=== PATIENT | male | born 1990 | race Two or more races ===

== ENCOUNTER 2018-03-19 09:46 | Emergency (ER) | payer OTHER ==
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
== END 2018-03-19 11:05 | disposition home or self-care (01) ==
LOC: JD.ED 09:46
DX: S16.1XXA Strain of muscle, fascia and tendon at neck level, initial encounter (principal); V59.49XA Driver of pick-up truck or van injured in collision with other motor vehicles in traffic accident, initial encounter
CPT/HCPCS: 99283

== ENCOUNTER 2021-03-08 20:29 | Emergency (ER) | payer OTHER, BC ==
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
--- NOTE | 2021-03-10 07:17 | CR ---
Chest: Frontal view of the chest was obtained. Comparison: No previous study. Heart size and mediastinum are normal. Lungs are clear with no acute parenchymal change. No acute osseous abnormality is appreciated. Impression: 1. Nothing acute is appreciated on frontal chest x-ray. Diagnostic code #1
--- NOTE | 2021-03-10 07:33 | CR ---
Right shoulder: 3 views of the right shoulder were obtained. Comparison: No previous shoulder study is available. Glenohumeral joint and acromioclavicular joint appear within normal limits. No acute fracture or dislocation is seen. Small nodule is noted within the right upper lung most likely representing granuloma. Impression: 1. Small granuloma within the right lung. 2. Right shoulder study is otherwise unremarkable. Diagnostic code #2
== END 2021-03-08 22:10 | disposition home or self-care (01) ==
LOC: JD.ED 20:29
DX: S40.011A Contusion of right shoulder, initial encounter (principal); J45.909 Unspecified asthma, uncomplicated; V28.4XXA Motorcycle driver injured in noncollision transport accident in traffic accident, initial encounter; Y92.410 Unspecified street and highway as the place of occurrence of the external cause
CPT/HCPCS: 71045; 71045-26; 73030-26-RT; 73030-RT; 99284-25